=== PATIENT | male | born 1955 | race Caucasian/White ===

== ENCOUNTER 2024-10-17 13:57 | Inpatient (IN) | payer MEDICARE, OTHER ==
[~2024-10-17] VITALS: Ht 170.2 cm; Wt 67.6 kg
[2024-10-17 15:39] LABS: BASOPHILS # (AUTO) 0.1 K/UL (0.0-0.2); BASOPHILS % (AUTO) 0.7 % (0.0-2.0); EOSINOPHILS % (AUTO) 0.5 % (0.0-7.0); HEMATOCRIT 31.4 % (36.7-47.1); HEMOGLOBIN 10.3 g/dL (12.5-16.3); LYMPHOCYTES # (AUTO) 2.1 K/uL (0.8-4.8); LYMPHOCYTES % (AUTO) 27.2 % (20.5-51.5); MEAN CORPUSCULAR HEMOGLOBIN 31.9 uug (23.8-33.4); MEAN CORPUSCULAR HGB CONC 33 g/dL (32.5-36.3); MEAN CORPUSCULAR VOLUME 97.4 fL (73.0-96.2); MONOCYTES # (AUTO) 0.7 K/uL (0.1-1.30); MONOCYTES % (AUTO) 9.2 % (0.0-11.0); NEUTROPHILS # (AUTO) 4.7 K/uL (1.8-8.9); NEUTROPHILS % (AUTO) 62.4 % (38.5-71.5); PLATELET COUNT (AUTO) 215 K/uL (152-348); RED BLOOD CELL COUNT(AUTO) 3.23 MIL/uL (4.06-5.63); RED CELL DISTRIBUTION WIDTH 12.5 % (12.1-16.2); WHITE BLOOD COUNT (AUTO) 7.6 K/uL (3.6-10.2)
[2024-10-17 15:45] LABS: CALCIUM 8.7 mg/dL (8.5-10.1); CARBON DIOXIDE 30 mmol/L (21-32); CHLORIDE 106 mmol/L (98-107); CREATININE 1.1 mg/dL (0.6-1.3); GLUCOSE 96 mg/dL (74-106); POTASSIUM 4.5 mmol/L (3.5-5.1); SODIUM SERUM 143 mmol/L (136-145); UREA NITROGEN, BLOOD 17 mg/dL (7-18)
[2024-10-17 15:46] LABS: DIFFERENTIAL COMMENT 1
[2024-10-17 15:55] LABS: ALANINE AMINOTRANSFERASE 18 U/L (16-63); ALKALINE PHOSPHATASE 65 U/L (50-136); ASPARTATE AMINOTRANSFERASE 13 U/L (15-37); BILIRUBIN,DIRECT 0.2 mg/dL (0.0-0.2); BILIRUBIN,TOTAL 0.5 mg/dL (0.2-1.0); TOTAL PROTEIN, SERUM 6.2 g/dL (6.4-8.2)
[2024-10-17 16:16] LABS: MAGNESIUM 1.9 mg/dL (1.8-2.4)
[2024-10-17 16:54] LABS: *BILIRUBIN,URIN NEGATIVE (NEGATIVE); *BLOOD, URINE NEGATIVE (NEGATIVE); *CLARITY,URINE CLEAR (CLEAR); *COLOR,URINE YELLOW (YELLOW); *KETONES,URINE NEGATIVE (NEGATIVE); *PROTEIN,URINE NEGATIVE (NEGATIVE); *UROBILINOGEN,URINE 0.2 E.U./dl (NORMAL); LEUKOCYTE ESTERASE ,URINE NEGATIVE (NEGATIVE); NITRITE, URINE NEGATIVE (NEGATIVE); UGLUCOSE NEGATIVE (NEGATIVE)
[2024-10-17] MEDS ORDERED: ASCO500C18 PO (21:46)
[2024-10-17] MEDS ORDERED: DONE10TA44 PO (21:46)
[2024-10-17] MEDS ORDERED: FOLI1TAB27 PO (21:46)
[2024-10-17] MEDS ORDERED: ATOR80TA PO (21:46)
[2024-10-17] MEDS ORDERED: LORA2VIA33 IM (21:46)
[2024-10-17] MEDS ORDERED: AMLO10TA59 PO (21:46)
[2024-10-17] MEDS ORDERED: QUET200T PO (21:47)
[2024-10-17] MEDS ORDERED: VALP250S3 PO (21:47)
[2024-10-17] MEDS ORDERED: MULT-225 PO (21:47)
[2024-10-17] MEDS ORDERED: OMEG10006 PO (21:47)
[2024-10-17] MEDS ORDERED: OLAN5TAB70 PO (21:47)
[2024-10-17] MEDS ORDERED: LISI20TA30 PO (21:47)
[2024-10-17] MEDS ORDERED: THIA100T74 PO (21:47)
[2024-10-17] MEDS ORDERED: QUET100T PO (21:47)
[2024-10-17] MEDS ORDERED: MULT-213 PO (21:47)
[2024-10-18] MEDS: LORAZEPAM 0.5 MG TABLET PO ONE (03:00)
[2024-10-18] MEDS ORDERED: LORAZEPAM 1 MG TABLET ONE (03:08)
[2024-10-18] MEDS ORDERED: TEMAZEPAM 7.5 MG CAPSULE PO PRN ×2 (03:30→17:00)
[2024-10-18] MEDS ORDERED: MAGNESIUM HYDROXIDE 30 ML LIQUID UDC PO PRN (03:30)
[2024-10-18] MEDS ORDERED: ACETAMINOPHEN 325 MG TABLET PO PRN (03:30)
[2024-10-18] MEDS ORDERED: MAG HYDROX/AL HYDROX/SIMETH 30 ML LIQUID UDC PO PRN (03:30)
[2024-10-18] MEDS: CLONAZEPAM 0.5 MG TABLET PO PRN ×2 (06:05→13:17)
[2024-10-18 08:06] VITALS: BP 135/80; TEMP 98; O2SAT 98
[2024-10-18] MEDS: OLANZAPINE 10 MG VIAL IM ONE (08:37)
[2024-10-18] MEDS: diphenhydrAMINE 50 MG/1 ML VIAL IV PRN (08:37)
[2024-10-18 15:59] VITALS: BP 107/81; TEMP 98; O2SAT 98
[2024-10-18] MEDS ORDERED: OMEGA PO SCH (17:00)
[2024-10-18] MEDS ORDERED: FATTY ACIDS PO SCH (17:00)
[2024-10-18] MEDS ORDERED: CLONAZEPAM 0.5 MG TABLET PO PRN (17:15)
[2024-10-18] MEDS: QUETIAPINE FUMARATE 25 MG TABLET PO SCH (17:16)
[2024-10-18 20:00] VITALS: BP 101/68; TEMP 97.5; O2SAT 95
[2024-10-18] MEDS: MULTIVITAMINS,THERAPEUTIC TABLET PO SCH (20:23)
[2024-10-18] MEDS: QUETIAPINE FUMARATE 100 MG TABLET PO SCH (20:23)
[2024-10-18] MEDS: ATORVASTATIN 40 MG TABLET PO SCH (20:23)
[2024-10-18] MEDS: THIAMINE HCL 100 MG TABLET PO SCH (20:23)
[2024-10-18] MEDS: DONEPEZIL 10 MG TABLET PO SCH (20:24)
[2024-10-18] MEDS: VALPROIC ACID 250 MG CAPSULE PO SCH (21:11)
[2024-10-19] MEDS: TEMAZEPAM 7.5 MG CAPSULE PO PRN (00:56)
[2024-10-19] MEDS: CLONAZEPAM 0.5 MG TABLET PO PRN (03:50)
[2024-10-19] MEDS: ASCORBIC ACID 500 MG TABLET PO SCH (08:47)
[2024-10-19] MEDS: LISINOPRIL 20 MG TABLET PO SCH (08:47)
[2024-10-19] MEDS: OMEGA-3 FATTY ACIDS/FISH OIL CAPSULE PO SCH (08:47)
[2024-10-19] MEDS: AMLODIPINE 10 MG TABLET PO SCH (08:47)
[2024-10-19] MEDS: FOLIC ACID 1 MG TABLET PO SCH (08:47)
[2024-10-19 09:22] VITALS: BP 125/77; TEMP 98; O2SAT 98
[2024-10-19 15:29] VITALS: BP 125/77; TEMP 98; O2SAT 98
[2024-10-19 20:00] VITALS: BP 126/75; TEMP 98; O2SAT 96
[2024-10-19] MEDS: QUETIAPINE FUMARATE 100 MG TABLET PO SCH (20:22)
[2024-10-20 08:12] VITALS: BP 104/59; TEMP 97.7; O2SAT 100
[2024-10-20 16:14] VITALS: BP 94/54; TEMP 98; O2SAT 100
[2024-10-20 20:00] VITALS: BP 104/54; TEMP 97.7; O2SAT 98
[2024-10-21 08:26] VITALS: BP 148/60; TEMP 98; O2SAT 98
[2024-10-21 16:34] VITALS: BP 98/56; TEMP 98; O2SAT 96
[2024-10-21 20:37] VITALS: BP 98/53; TEMP 98.1; O2SAT 96
[2024-10-22 08:17] VITALS: BP 119/74; TEMP 98; O2SAT 96
[2024-10-22 15:34] VITALS: BP 147/69; TEMP 97.5; O2SAT 97
[2024-10-22 20:23] VITALS: BP 129/63; TEMP 97.8; O2SAT 98
[2024-10-23] MEDS: OLANZAPINE 10 MG VIAL IM ONE (11:15)
[2024-10-23] MEDS: diphenhydrAMINE 50 MG/1 ML VIAL IM ONE (11:15)
[2024-10-23] MEDS: QUETIAPINE FUMARATE 25 MG TABLET PO SCH (17:17)
[2024-10-23 20:00] VITALS: BP 119/85; TEMP 97.9; O2SAT 99
[2024-10-23] MEDS: QUETIAPINE FUMARATE 100 MG TABLET PO SCH (21:15)
[2024-10-24 08:04] VITALS: BP 140/77; TEMP 98; O2SAT 96
[2024-10-24 15:17] VITALS: BP 107/63; TEMP 98; O2SAT 96
[2024-10-24] MEDS ORDERED: QUETIAPINE FUMARATE 25 MG TABLET PO SCH (17:00)
[2024-10-24] MEDS: QUETIAPINE FUMARATE 100 MG TABLET PO SCH (17:13)
[2024-10-24 20:00] VITALS: BP 96/59; TEMP 97.5; O2SAT 97
[2024-10-25 15:24] VITALS: BP 96/53; TEMP 97.8; O2SAT 98
[2024-10-25 20:00] VITALS: BP 118/69; TEMP 97.5; O2SAT 98
[2024-10-26 08:00] VITALS: BP 145/54; TEMP 97.6; O2SAT 97
[2024-10-26 16:00] VITALS: BP 125/77; TEMP 97.2; O2SAT 97
[2024-10-26 21:15] VITALS: BP 116/74; TEMP 97.4; O2SAT 99
[2024-10-27 08:10] VITALS: BP 128/62; TEMP 98.1; O2SAT 100
[2024-10-27 16:06] VITALS: BP 95/47; TEMP 98; O2SAT 100
[2024-10-27 19:49] VITALS: BP 128/82; TEMP 98.1; O2SAT 100
[2024-10-28 08:12] VITALS: BP 122/69; TEMP 98.3; O2SAT 100
[2024-10-28 16:32] VITALS: BP 96/58; TEMP 97.5; O2SAT 98
[2024-10-28 19:56] VITALS: BP 97/54; TEMP 98.2; O2SAT 97
[2024-10-29 08:08] VITALS: BP 142/61; TEMP 97.8; O2SAT 100
[2024-10-29 16:10] VITALS: BP 119/80; TEMP 97.6; O2SAT 96
[2024-10-29 20:11] VITALS: BP 106/55; TEMP 97.2; O2SAT 95
[2024-10-30 08:08] VITALS: BP 155/97; TEMP 97.9; O2SAT 98
[2024-10-30 16:10] VITALS: BP 117/60; TEMP 98.1; O2SAT 97
[2024-10-31 08:10] VITALS: BP 111/69; TEMP 98; O2SAT 97
[2024-10-31] MEDS: VALPROIC ACID 250 MG CAPSULE PO SCH (08:24)
[2024-10-31 20:01] VITALS: BP 116/66; TEMP 98.1; O2SAT 98
[2024-11-01 08:09] VITALS: BP 135/86; TEMP 98.2; O2SAT 98
[2024-11-01 16:21] VITALS: BP 144/93; TEMP 98; O2SAT 98
[2024-11-01 22:08] VITALS: BP 97/56; TEMP 98.8; O2SAT 95
[2024-11-02 08:25] VITALS: BP 136/68; TEMP 97.8; O2SAT 96
[2024-11-02 15:54] VITALS: BP 141/76; TEMP 98; O2SAT 98
[2024-11-02 20:00] VITALS: BP 92/64; TEMP 98; O2SAT 95
[2024-11-03 08:09] VITALS: BP 148/81; TEMP 98; O2SAT 100
[2024-11-03] MEDS: OLANZAPINE 10 MG VIAL IM ONE (08:43)
[2024-11-03] MEDS: diphenhydrAMINE 50 MG/1 ML VIAL IM ONE ×2 (08:43→13:54)
[2024-11-03] MEDS: HALOPERIDOL LACTATE 5 MG/1 ML VIAL IM ONE (13:55)
[2024-11-03] MEDS: risperiDONE 0.5 MG TABLET PO SCH (18:16)
[2024-11-04 07:56] VITALS: BP 127/66; TEMP 98; O2SAT 98
[2024-11-04 08:05] LABS: BASOPHILS # (AUTO) 0.1 K/UL (0.0-0.2); EOSINOPHILS # (AUTO) 0.1 K/uL (0.0-0.7); EOSINOPHILS % (AUTO) 1.2 % (0.0-7.0); HEMATOCRIT 35.5 % (36.7-47.1); HEMOGLOBIN 11.7 g/dL (12.5-16.3); LYMPHOCYTES # (AUTO) 2.4 K/uL (0.8-4.8); LYMPHOCYTES % (AUTO) 30.3 % (20.5-51.5); MEAN CORPUSCULAR HEMOGLOBIN 31.9 uug (23.8-33.4); MEAN CORPUSCULAR HGB CONC 33 g/dL (32.5-36.3); MEAN CORPUSCULAR VOLUME 96.9 fL (73.0-96.2); MONOCYTES # (AUTO) 0.6 K/uL (0.1-1.30); MONOCYTES % (AUTO) 7.4 % (0.0-11.0); NEUTROPHILS # (AUTO) 4.8 K/uL (1.8-8.9); NEUTROPHILS % (AUTO) 60.1 % (38.5-71.5); PLATELET COUNT (AUTO) 266 K/uL (152-348); RED BLOOD CELL COUNT(AUTO) 3.66 MIL/uL (4.06-5.63); RED CELL DISTRIBUTION WIDTH 12.5 % (12.1-16.2); WHITE BLOOD COUNT (AUTO) 7.9 K/uL (3.6-10.2)
[2024-11-04 08:26] LABS: DIFFERENTIAL COMMENT 1
[2024-11-04 08:29] LABS: ALBUMIN 3.4 g/dL (3.4-5.0); BILIRUBIN,TOTAL 0.8 mg/dL (0.2-1.0); CALCIUM 9.2 mg/dL (8.5-10.1); CREATININE 1.2 mg/dL (0.6-1.3); MAGNESIUM 2.2 mg/dL (1.8-2.4); PHOSPHOROUS 3.4 mg/dL (2.5-4.9); POTASSIUM 4.1 mmol/L (3.5-5.1); TOTAL PROTEIN, SERUM 7.2 g/dL (6.4-8.2)
[2024-11-04 08:36] LABS: THYROID STIMULATING HORMONE 2.598 mIU/mL (0.358-3.740)
[2024-11-04 15:44] VITALS: BP 115/67; TEMP 98; O2SAT 98
[2024-11-04 20:00] VITALS: BP 123/64; TEMP 98.1; O2SAT 97
[2024-11-04 22:21] LABS: *BILIRUBIN,URIN NEGATIVE (NEGATIVE); *BLOOD, URINE NEGATIVE (NEGATIVE); *CLARITY,URINE CLEAR (CLEAR); *COLOR,URINE YELLOW (YELLOW); *KETONES,URINE TRACE (NEGATIVE); *PROTEIN,URINE 1+ (NEGATIVE); *UROBILINOGEN,URINE 0.2 E.U./dl (NORMAL); LEUKOCYTE ESTERASE ,URINE TRACE (NEGATIVE); NITRITE, URINE NEGATIVE (NEGATIVE); PH,URINE 5.5 (5.0-8.0); UGLUCOSE NEGATIVE (NEGATIVE)
[2024-11-04 22:33] LABS: BACTERIA,URINE NONE SEEN /HPF (NONE SEEN); RBC,URINE 0-3 /HPF (0-3); SQUAMOUS EPITHELIAL CELL,UR FEW /HPF (NONE SEEN)
[2024-11-05 08:12] VITALS: BP 149/72; TEMP 97.6; O2SAT 97
[2024-11-05 16:35] VITALS: BP 98/65; TEMP 98.1; O2SAT 99
[2024-11-05 20:16] VITALS: BP 128/72; TEMP 97.5; O2SAT 93
[2024-11-06 08:14] VITALS: BP 127/86; TEMP 98.3; O2SAT 96
[2024-11-06] MEDS: NEOMY/BACITRAC/POLYMI OINT 28.35 GM TUBE TOP SCH (09:45)
[2024-11-06 20:14] VITALS: BP 138/81; TEMP 98.1; O2SAT 95
[2024-11-07 08:14] VITALS: BP 137/83; TEMP 97.8; O2SAT 96
[2024-11-07 16:44] VITALS: BP 143/69; TEMP 97.3; O2SAT 99
[2024-11-07 20:00] VITALS: BP 142/74; TEMP 97.8; O2SAT 98
== END 2024-11-07 21:10 | DRG 885 ==
LOC: ER 13:57 → GPS 10-18 03:13
PROVIDERS: ADMIT Psychiatry & Neurology Psychiatry; ATTEND Nurse Practitioner Acute Care
DX: F29 Unspecified psychosis not due to a substance or known physiological condition (principal); E44.1 Mild protein-calorie malnutrition; F03.C3 Unspecified dementia, severe, with mood disturbance; F03.C4 Unspecified dementia, severe, with anxiety; F03.911 Unspecified dementia, unspecified severity, with agitation; G47.00 Insomnia, unspecified; E88.09 Other disorders of plasma-protein metabolism, not elsewhere classified; E78.5 Hyperlipidemia, unspecified; R26.89 Other abnormalities of gait and mobility; F25.9 Schizoaffective disorder, unspecified; Z86.73 Personal history of transient ischemic attack (TIA), and cerebral infarction without residual deficits; D64.9 Anemia, unspecified; I10 Essential (primary) hypertension; R32 Unspecified urinary incontinence; Z79.899 Other long term (current) drug therapy
CPT/HCPCS: 36415; 70450; 80164; 83550; 83735; 84100; 84443; 84484; 85025; 93005; J1200; J1630; J2358